=== PATIENT | female | born 1965 | race Caucasian/White ===

== ENCOUNTER 2024-06-09 15:33 | Inpatient (IN) | payer MEDICARE, SELFPAY ==
[2024-06-09 16:03] LABS: Actual Bicarbonate (HCO3v) 30.4 mEq/L (22-28); Analyzer IN Cardio ER; Base Excess 5.5 mEq/L (-2.0 to +3.0); Calcium, Ionized (venous) 1.02 mmol/L (1.16-1.32); Chloride (VBG) 102 mmol/L (98-106); Hematocrit-VBG 21 % (36.0-47.0); Sodium 140 mmol/L (133-146); pH (venous) 7.431 (7.32-7.43)
[2024-06-09 16:06] LABS: Potassium (VBG) 2.61 mmol/L (3.70-5.30)
[2024-06-09 16:09] LABS: #Basophils Less than 0.03 10x3/uL (0.0-0.2); %Basophils 0.3 % (0.0-1.0); %Eosinophils 1.6 % (0.0-10.0); %Monocytes 7.7 % (0.0-10.0); %Neutrophils 65.5 % (42.0-75.0); Hematocrit 20.6 % (36.0-47.0); Hemoglobin 7.3 g/dL (12.0-16.0); Mean Corpuscular HGB CONC 35.4 g/dL (32.0-36.0); Mean Corpuscular Hemoglobin 39.7 pg (27.0-31.0); Mean Platelet Volume 10.6 fL (7.4-10.4); Platelet Count 125 10x3/uL (130-400); RBC Distribution Width 20.2 % (11.5-14.5); Red Blood Cell (RBC) Count 1.84 mill/uL (4.20-5.40)
[2024-06-09 16:27] LABS: Lipase 101 U/L (8-78)
[2024-06-09 16:28] LABS: ALT (SGPT) 47 U/L (8-55); AST (SGOT) 193 U/L (5-34); Albumin 2.4 g/dL (3.5-5.0); Alkaline Phosphatase 220 U/L (40-110); Anion Gap 16 mmol/L (10-20); BUN (Urea Nitrogen) 5 mg/dL (9.8-20.1); Bilirubin, Total 1.4 mg/dL (0.2-1.2); CK (CPK) 261 U/L (29-168); Calc. Creatinine Clearance 0 mL/min (70-130); Calcium 7.4 mg/dL (7.8-10.44); Carbon Dioxide 27 mmol/L (22-29); Chloride 103 mmol/L (98-107); Estimated GFR 115; Globulin 2.8 g/dL (2.4-3.5); Glucose 104 mg/dL (70-105); Potassium 2.7 mmol/L (3.5-5.1); Protein, Total 5.2 g/dL (6.0-8.3); Sodium 143 mmol/L (136-145)
[2024-06-09 16:29] LABS: Hypochromia SLIGHT = 6-15 cells HPF (0-5); Macrocytosis SLIGHT = 6-15 cells HPF (0-5); Platelet Adequacy Comment Platelets Decreased; Polychromasia MODERATE = 3-4 cells HPF (0-2); Stomatocytes SLIGHT = 2-5 cells HPF (0-1)
[2024-06-09 16:30] LABS: Acetaminophen Less than 10 mcg/mL (Less than 10); Alcohol 190.9 mg/dL (Less than 10); Salicylate Less than 8.0 mg/dL (Less than 8.0)
[2024-06-09 16:34] LABS: Troponin I Less than 0.010 ng/mL (< 0.028)
[2024-06-09] MEDS ORDERED: NOREPINEPHRINE 8 MG/250 ML-D5W 0 ML ONE (16:59)
[2024-06-09] MEDS ORDERED: Vancomycin 1 GM/200 ML (FROZEN) BAG ONE (17:07)
[2024-06-09] MEDS ORDERED: Sodium Chloride 0.9% 100 ML ONE (17:07)
[2024-06-09] MEDS ORDERED: Cefepime 2 GM VIAL ONE (17:07)
[2024-06-09] MEDS ORDERED: Acetaminophen 500 MG TAB ONE (17:17)
[2024-06-09] MEDS ORDERED: Activated Charcoal (AQUA) 25 GM/120 ML TUBE ONE (17:39)
[2024-06-09] MEDS ORDERED: Potassium Chloride 20 MEQ TAB ONE (18:09)
[2024-06-09] MEDS ORDERED: Potassium Chloride 20 MEQ (100 mL) BAG ONE (18:27)
[2024-06-09 18:56] LABS: Lactic Acid 3.07 mmol/L (0.5-2.2)
[2024-06-09] MEDS ORDERED: Ondansetron PF 4 MG/2 ML Vial IVP PRN (19:43)
[2024-06-09] MEDS ORDERED: Lorazepam 1 MG TAB PO PRN (19:43)
[2024-06-09] MEDS ORDERED: Senokot S 8.6-50 MG TAB PO PRN (19:43)
[2024-06-09] MEDS ORDERED: Calcium Carbonate 500 MG ChewTAB PO PRN (19:43)
[2024-06-09] MEDS ORDERED: Electrolyte Replacement Protocol 1 EACH FS SCH (19:45)
[2024-06-09 21:32] VITALS: BMI 15.0
[2024-06-09] MEDS ORDERED: Sodium Chloride 0.9% 1,000 ML IV SCH (22:00)
[2024-06-09 22:25] LABS: #Basophils 0.03 10x3/uL (0.0-0.2); %Basophils 0.4 % (0.0-1.0); %Eosinophils 1.9 % (0.0-10.0); %Lymphocytes 18.5 % (21.0-51.0); %Monocytes 8.2 % (0.0-10.0); %Neutrophils 69.9 % (42.0-75.0); Hematocrit 18.4 % (36.0-47.0); Hemoglobin 6.3 g/dL (12.0-16.0); Mean Corpuscular HGB CONC 34.2 g/dL (32.0-36.0); Mean Corpuscular Hemoglobin 39.9 pg (27.0-31.0); Mean Corpuscular Volume 116.5 fL (78.0-98.0); Mean Platelet Volume 11.8 fL (7.4-10.4); Platelet Count 97 10x3/uL (130-400); RBC Distribution Width 21.4 % (11.5-14.5); Red Blood Cell (RBC) Count 1.58 mill/uL (4.20-5.40)
[2024-06-09] MEDS: Gabapentin 100 MG CAP PO SCH (22:40)
[2024-06-09] MEDS: Thiamine HCl 200 MG/2 ML VIAL SLOW IVP SCH (22:42)
[2024-06-09 22:44] LABS: Anisocytosis SLIGHT = 6-15 cells HPF (0-5); Hypochromia SLIGHT = 6-15 cells HPF (0-5); Macrocytosis SLIGHT = 6-15 cells HPF (0-5); Platelet Adequacy Comment Platelets Decreased; Polychromasia SLIGHT = 2-3 cells HPF (0-2); Tear Drops SLIGHT = 2-5 cells HPF (0-1)
[2024-06-09] MEDS: Albumin 25% 25 GM (100 mL) BOT IVPB SCH (22:48)
[2024-06-09] MEDS: D5 LR w/20 mEq KCL 1,000 ML IV SCH (23:47)
[2024-06-10] MEDS: Acetaminophen 325 MG TAB PO PRN (00:13)
[2024-06-10 00:40] LABS: Anion Gap 11 mmol/L (10-20); BUN (Urea Nitrogen) 4 mg/dL (9.8-20.1); Calc. Creatinine Clearance 110 mL/min (70-130); Calcium 6.3 mg/dL (7.8-10.44); Carbon Dioxide 19 mmol/L (22-29); Chloride 114 mmol/L (98-107); Estimated GFR 118; Glucose 100 mg/dL (70-105); Magnesium 1.3 mg/dL (1.6-2.6); Potassium 3.6 mmol/L (3.5-5.1); Sodium 140 mmol/L (136-145)
[2024-06-10] MEDS: Folic Acid 1 MG TAB PO SCH ×2 (00:59→09:28)
[2024-06-10] MEDS: Multivit, Therapeutic 1 TAB PO SCH ×2 (00:59→09:28)
[2024-06-10] MEDS: Potassium Chloride 20 MEQ in Premix 1 BAG IVPB SCH (01:41)
[2024-06-10] MEDS: CALCIUM GLUC 1 GM/NS 50 ML 1 GM in Premix 1 BAG IVPB SCH (02:30)
[2024-06-10 06:53] LABS: #Basophils 0.03 10x3/uL (0.0-0.2); %Basophils 0.4 % (0.0-1.0); %Eosinophils 1.3 % (0.0-10.0); %Lymphocytes 14.7 % (21.0-51.0); %Neutrophils 74.7 % (42.0-75.0); Hematocrit 24.5 % (36.0-47.0); Hemoglobin 8.2 g/dL (12.0-16.0); Mean Corpuscular HGB CONC 33.5 g/dL (32.0-36.0); Mean Corpuscular Volume 107.5 fL (78.0-98.0); Mean Platelet Volume 10.6 fL (7.4-10.4); Platelet Count 104 10x3/uL (130-400); RBC Distribution Width 25.2 % (11.5-14.5); Red Blood Cell (RBC) Count 2.28 mill/uL (4.20-5.40)
[2024-06-10 07:07] LABS: Magnesium 1.2 mg/dL (1.6-2.6); Phosphorus 1.4 mg/dL (2.3-4.7)
[2024-06-10 07:10] LABS: ALT (SGPT) 45 U/L (8-55); AST (SGOT) 173 U/L (5-34); Albumin 2.7 g/dL (3.5-5.0); Alkaline Phosphatase 183 U/L (40-110); Anion Gap 12 mmol/L (10-20); BUN (Urea Nitrogen) Less than 4 mg/dL (9.8-20.1); Bilirubin, Direct 1.4 mg/dL (0.1-0.3); Bilirubin, Total 2.4 mg/dL (0.2-1.2); Calc. Creatinine Clearance 96 mL/min (70-130); Calcium 7.6 mg/dL (7.8-10.44); Carbon Dioxide 19 mmol/L (22-29); Chloride 114 mmol/L (98-107); Estimated GFR 115; Globulin 2.4 g/dL (2.4-3.5); Glucose 113 mg/dL (70-105); Iron 80 ug/dL (50-170); Iron Binding Capacity, Total 91 mcg/dL (265-497); Potassium 4.6 mmol/L (3.5-5.1); Protein, Total 5.1 g/dL (6.0-8.3); Sodium 140 mmol/L (136-145)
[2024-06-10 07:35] LABS: Bacteria/HPF None Seen HPF (None Seen); Bilirubin Negative (Negative); Blood, Urine Negative (Negative); Clarity Clear (Clear); Glucose, Urine (Dipstick) Normal (Negative); Ketone, Urine Negative (Negative); Leukocyte Negative Leu/uL (Negative); Nitrite Negative (Negative); Protein, Urine (Dipstick) Negative (Neg-Trace); RBC/HPF 0-3 HPF (0-3); Specific Gravity, Urine 1.011 (1.002-1.036); Squamous Epithelial 0-3 HPF (0-3); Urobilinogen 3 mg/dL (Less than 2); WBC/HPF 0-3 HPF (0-3); pH, Urine 5.5 (5.0-9.0)
[2024-06-10 07:44] LABS: Amphetamine Not Detected (NotDetected); Barbiturates Screen Not Detected (NotDetected); Benzodiazepine Screen Not Detected (NotDetected); Cocaine Metabolite Screen Not Detected (NotDetected); Methadone Not Detected (NotDetected); Methamphetamine Not Detected (NotDetected); Opiate Screen Not Detected (NotDetected); Oxycodone Screen Not Detected (NotDetected); Phencyclidine (PCP) Not Detected (NotDetected); THC/Cannabinoid Screen Not Detected (NotDetected); Tricyclic Screen Not Detected (NotDetected)
[2024-06-10 07:59] LABS: Ferritin 3480.88 ng/mL (10-291)
[2024-06-10] MEDS: PHOS-NAK 1 PKT PACK PO SCH (09:26)
[2024-06-10] MEDS: Cyanocobalamin (Vitamin B-12) 1,000 MCG TAB PO SCH (09:28)
[2024-06-10] MEDS: Magnesium Sulfate In Water 4 GM in Premix 1 BAG IVPB SCH (09:50)
[2024-06-10] MEDS: Pantoprazole DR 40 MG TAB PO SCH ×2 (09:51→09:54)
[2024-06-10 12:42] VITALS: BP 89/63
[2024-06-10 16:28] VITALS: BMI 15.0
[2024-06-10] MEDS: Nicotine 21 MG PATCH TOP SCH (17:25)
[2024-06-10] MEDS: Lorazepam 1 MG TAB PO PRN (21:17)
[2024-06-11 04:24] LABS: #Basophils 0.04 10x3/uL (0.0-0.2); %Basophils 0.4 % (0.0-1.0); %Lymphocytes 17.5 % (21.0-51.0); %Monocytes 8.2 % (0.0-10.0); %Neutrophils 69.9 % (42.0-75.0); Hemoglobin 9.1 g/dL (12.0-16.0); Mean Corpuscular HGB CONC 33.7 g/dL (32.0-36.0); Mean Corpuscular Hemoglobin 36.4 pg (27.0-31.0); Mean Platelet Volume 10.2 fL (7.4-10.4); Platelet Count 115 10x3/uL (130-400); RBC Distribution Width 26.6 % (11.5-14.5)
[2024-06-11 04:28] LABS: ALT (SGPT) 42 U/L (8-55); AST (SGOT) 128 U/L (5-34); Albumin 2.3 g/dL (3.5-5.0); Alkaline Phosphatase 194 U/L (40-110); Anion Gap 13 mmol/L (10-20); BUN (Urea Nitrogen) Less than 4 mg/dL (9.8-20.1); Bilirubin, Total 1.8 mg/dL (0.2-1.2); Calc. Creatinine Clearance 119 mL/min (70-130); Calcium 7.7 mg/dL (7.8-10.44); Carbon Dioxide 19 mmol/L (22-29); Chloride 107 mmol/L (98-107); Estimated GFR 121; Globulin 2.4 g/dL (2.4-3.5); Glucose 116 mg/dL (70-105); Magnesium 1.9 mg/dL (1.6-2.6); Potassium 4.9 mmol/L (3.5-5.1); Protein, Total 4.7 g/dL (6.0-8.3); Sodium 134 mmol/L (136-145)
[2024-06-11 09:29] LABS: Phosphorus 2.2 mg/dL (2.3-4.7)
[2024-06-11] MEDS: Magnesium 2 GM/50 ML(in water) 2 GM in Premix 1 BAG IVPB SCH (09:38)
[2024-06-11] MEDS: Sodium Bicarbonate Tab 325 MG TAB PO SCH (22:12)
[2024-06-11] MEDS: Lorazepam 1 MG TAB PO PRN (22:13)
[2024-06-12 05:05] LABS: Anion Gap 13 mmol/L (10-20); BUN (Urea Nitrogen) Less than 4 mg/dL (9.8-20.1); Calc. Creatinine Clearance 118 mL/min (70-130); Calcium 8.1 mg/dL (7.8-10.44); Carbon Dioxide 19 mmol/L (22-29); Chloride 107 mmol/L (98-107); Estimated GFR 121; Glucose 90 mg/dL (70-105); Magnesium 1.8 mg/dL (1.6-2.6); Potassium 5.5 mmol/L (3.5-5.1); Sodium 133 mmol/L (136-145)
[2024-06-12] MEDS: Dextrose 5%-Lactated Ringers 1,000 ML IV SCH (06:37)
[2024-06-12] MEDS: Magnesium 2 GM/50 ML(in water) 2 GM in Premix 1 BAG IVPB SCH (09:34)
[2024-06-12 09:41] VITALS: TEMP 97.6
[2024-06-12] MEDS ORDERED: Lorazepam 0.5 MG TAB PO PRN (19:44)
[2024-06-12] MEDS ORDERED: Thiamine 100 MG TAB PO SCH (21:00)
== END 2024-06-12 17:30 | disposition home health service (06) | DRG 640 ==
LOC: SUATTDRO 15:33 → ERS 15:33 → IMCU/EMU 19:15 → T4-A 06-12 10:03
PROVIDERS: ADMIT Internal Medicine; ATTEND Student in an Organized Health Care Education/Training Program
DX: E86.0 Dehydration (principal); G93.41 Metabolic encephalopathy; F10.229 Alcohol dependence with intoxication, unspecified; E87.20 Acidosis, unspecified; E88.89 Other specified metabolic disorders; T73.0XXA Starvation, initial encounter; Z66 Do not resuscitate; Z51.5 Encounter for palliative care; F32.A Depression, unspecified; F41.9 Anxiety disorder, unspecified; Y90.6 Blood alcohol level of 120-199 mg/100 ml; E87.6 Hypokalemia; D53.9 Nutritional anemia, unspecified; G62.9 Polyneuropathy, unspecified; E83.51 Hypocalcemia; D69.6 Thrombocytopenia, unspecified
CPT/HCPCS: 36415; 36416; 36430; 70450; 71045; 76705; 80048; 80053; 80306; 80307; 81001; 82140; 82248; 82274; 82533; 82550; 82607; 82728; 82805; 83540; 83550; 83605; 83690; 83735; 84100; 84134; 84425; 84443; 84484; 85014; 85018; 85025; 86850; 86900; 86901; 87040; 93005; 94760; J0613; J0692; J3370-JW; J3411; J3475; J3480; P9016; P9047